=== PATIENT | female | born 1985 | race Caucasian/White ===

== ENCOUNTER 2017-01-20 03:09 | Outpatient (CLI) | payer OTHER | END 2017-01-20 03:10 | disposition home or self-care (01) | LOC: BICMRI 03:09 | PROVIDERS: ATTEND Family Medicine | DX: Z53.9 Procedure and treatment not carried out, unspecified reason (principal) ==

== ENCOUNTER 2018-06-01 21:22 | Emergency (ER) | payer OTHER ==
--- NOTE | 2018-06-01 22:53 | ULT ---
RIGHT UPPER QUADRANT ULTRASOUND: 06/01/18 HISTORY: Elevated LFTs and abdominal pain. FINDINGS: Liver echogenicity is within normal limits. No focal liver masses. Status post cholecystectomy. Commo n bile duct 0.4 cm. The visualized pancreas and right kidney are unremarkable. No right upper quadran t fluid collection. IMPRESSION: Status post cholecystectomy without ductal dilatation. Unremarkable right upper quadrant ultrasound. POS: [facility]
[2018-06-01 22:54] LABS: Free T4 (Free Thyroxine) 0.98 ng/dL (0.70-1.48)
[2018-06-02 00:23] LABS: HBCM Index 0.06 S/CO (0-0.79); HBSAg Index 0.32 S/CO (0-0.99); Hep A IgM AB Non-Reactive (NonReactive); Hep B Surf Ag Non-Reactive S/CO (NonReactive); Hep C IgG Ab Non-Reactive (NonReactive); Hep C Index 0.09 S/CO (0-0.79); Hepatitis B Core IgM Abs Non-Reactive (NonReactive)
== END 2018-06-01 23:28 | disposition home or self-care (01) ==
LOC: ERS 21:22
DX: B17.9 Acute viral hepatitis, unspecified (principal); F41.9 Anxiety disorder, unspecified; F17.210 Nicotine dependence, cigarettes, uncomplicated; Z87.442 Personal history of urinary calculi; Z79.1 Long term (current) use of non-steroidal anti-inflammatories (NSAID); Z79.899 Other long term (current) drug therapy
CPT/HCPCS: 36415; 76705; 80074; 84439

== ENCOUNTER 2018-06-04 06:52 | Emergency (ER) | payer OTHER ==
[2018-06-04 07:15] LABS: #Lymphocytes 1.9 thou/uL (1.20-3.40); #Monocytes 0.6 thou/uL (0.11-0.59); %Basophils 0.6 % (0.0-1.0); %Eosinophils 0.2 % (0.0-10.0); %Lymphocytes 25.4 % (21.0-51.0); %Monocytes 7.8 % (0.0-10.0); Mean Corpuscular HGB CONC 32.4 g/dL (32.0-36.0); Mean Corpuscular Volume 89.5 fL (78.0-98.0); Mean Platelet Volume 7.1 fL (7.4-10.4); Platelet Count 311 thou/uL (130-400); RBC Distribution Width 15.8 % (11.5-14.5); Red Blood Cell (RBC) Count 5.15 mill/uL (4.20-5.40); White Blood Cell (WBC) Count 7.5 thou/uL (4.8-10.8)
[2018-06-04 07:40] LABS: Acetaminophen Less than 6.0 mcg/mL (10.0-30.0); Alcohol Less than 10 mg/dL (Less than 10); Salicylate Less than 8.0 mg/dL (15.0-30.0)
[2018-06-04 07:41] LABS: ALT (SGPT) 136 U/L (8-55); AST (SGOT) 47 U/L (5-34); Albumin 4.6 g/dL (3.5-5.0); Alkaline Phosphatase 176 U/L (40-150); Anion Gap 17 mmol/L (10-20); BUN (Urea Nitrogen) 14 mg/dL (7.0-18.7); Bilirubin, Total 1.1 mg/dL (0.2-1.2); Calc. Creatinine Clearance 0 mL/min (70-130); Calcium 9.8 mg/dL (7.8-10.44); Carbon Dioxide 22 mmol/L (22-29); Chloride 103 mmol/L (98-107); Estimated GFR-MDRD Greater than 90; Globulin 3.7 g/dL (2.4-3.5); Glucose 134 mg/dL (70-105); Potassium 3.5 mmol/L (3.5-5.1); Protein, Total 8.3 g/dL (6.0-8.3); Sodium 138 mmol/L (136-145)
== END 2018-06-04 11:20 | disposition home or self-care (01) ==
LOC: ERS 06:52
DX: F32.9 Major depressive disorder, single episode, unspecified (principal); F11.10 Opioid abuse, uncomplicated; F19.10 Other psychoactive substance abuse, uncomplicated; F41.9 Anxiety disorder, unspecified; F17.210 Nicotine dependence, cigarettes, uncomplicated; Z79.899 Other long term (current) drug therapy
CPT/HCPCS: 36415; 80053; 80307; 85025; 96360; 96361

== ENCOUNTER 2018-06-06 02:37 | Inpatient (IN) | payer OTHER ==
[2018-06-06] MEDS ORDERED: cefTRIAXone\\ROCEPHIN 2 GM VIAL ONE (03:28)
[2018-06-06] MEDS ORDERED: Sodium Chloride 0.9% 100 ML ONE (03:28)
[2018-06-06] MEDS ORDERED: Vancomycin HCl 1.25 GM in Sodium Chloride 0.9% 250 ML 250 ML IVPB SCH (04:00)
[2018-06-06 06:26] VITALS: BMI 21.0
[2018-06-06] MEDS ORDERED: Ondansetron ODT 4 MG TAB PO PRN (07:00)
[2018-06-06] MEDS ORDERED: Ondansetron PF 4 MG/2 ML Vial IVP PRN ×2 (07:00→08:01)
[2018-06-06] MEDS ORDERED: Acetaminophen 325 MG TAB PO PRN (07:55)
[2018-06-06] MEDS ORDERED: Bisacodyl 5 MG TAB PO PRN (08:01)
[2018-06-06] MEDS ORDERED: cefTRIAXone Sodium 2 MG in Syringe 0 ML IVPB SCH (08:15)
[2018-06-06] MEDS: Famotidine 20 MG TAB PO SCH ×2 (08:55→19:33)
[2018-06-06] MEDS: ALPRAZolam 0.5 MG TAB PO SCH ×3 (08:55→19:33)
[2018-06-06] MEDS: HYDROcodone/Acetaminophen 5/325 mg Tablet PO PRN ×3 (10:53→19:33)
[2018-06-06] MEDS: Sodium Chloride 0.9% 1,000 ML IV SCH ×2 (10:54→17:06)
[2018-06-06] MEDS: Acyclovir Sodium 800 MG in Sodium Chloride 0.9% 250 ML 250 ML IVPB SCH ×2 (11:35→19:34)
[2018-06-06] MEDS: Vancomycin HCl 1 GM in Premix Bag 1 BAG IVPB SCH ×2 (13:49→19:34)
--- NOTE | 2018-06-06 14:11 | HP ---
CHIEF COMPLAINT: Confusion. 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 She was found to have elevated liver enzymes and told that it was related to the Tylenol and her [place]. She decided to discontinue her benzodiazepine and [place] abruptly and started developing hallucinations. Now, there is a mention of subjective fever and the patient was transferred from [place] ER for suspected encephalitis. She denies any genital or oral ulcers. She refers significant bilateral hip pain. Her , Mitchel, is present and helps providing some of the information. He is currently disoriented in place only, but is able to communicate and cooperate. At the [place] ER, she was found to have elevated white blood cell count, mildly elevation of liver enzymes, low TSH, low potassium, urine drug screen positive for marijuana and opiates. REVIEW OF SYSTEMS: All systems are reviewed and negative except for the ones mentioned above. PAST MEDICAL HISTORY: 1. Chronic pain syndrome. 2. Anxiety. 3. Chronic opiate dependence. 4. Benzodiazepine dependence. PAST SURGICAL HISTORY: 1. Hysterectomy. 2. Cholecystectomy. 3. Spine tumor removal. SOCIAL HISTORY: She denies tobacco or alcohol. Narcotic and benzodiazepine dependence. She is positive for marijuana. She has eight children. Currently unemployed. She has no living will, power of consumer attorney, advance directive. She is a full code. ALLERGIES: TO TYLENOL NO 3, BUT ABLE TO TOLERATE [place] WITHOUT COMPLICATIONS. FAMILY HISTORY: Her mother with a stroke. She did not know her father. HOME MEDICATIONS: Reviewed. PHYSICAL EXAMINATION: VITAL SIGNS: Currently unavailable. GENERAL: She appears in mild distress. She is awake, alert, and oriented in person, time, but not place. HEAD AND NECK: Pupils are reactive to light. Extraocular muscles are intact. Mucous members are moist. Neck is supple. CARDIOVASCULAR: Rhythm and rate are regular. No audible murmurs, rubs, or gallops. PULMONARY: Clear to auscultation bilaterally. No wheezes, rhonchi, or crackles. ABDOMEN: Soft, nontender, nondistended, positive bowel sounds. EXTREMITIES: No palpable edema. Pulses are symmetric. Range of motion is somewhat painful in bilateral hips. SKIN: Fair skin. No genital or oral ulcers. No breakdowns of the skin. NEUROLOGIC: Cranial nerves 2 through 12 are grossly intact. Deep tendon reflexes are normoreflexic. LABORATORY ABNORMALITIES: Outside labs are reviewed. IMAGING STUDIES: CT scan report and chest x-ray report reviewed. ASSESSMENT AND PLAN: 1. Acute metabolic encephalopathy: No clear etiology. Suspected infectious. LP was attempted at the [place] ER and was unsuccessful. IR has been consulted for CT-guided LP. We will continue broad antibiotics for suspected encephalitis/meningitis until results are available. More likely since I was reviewing vital signs without the presence of fever. 2. Chronic pain syndrome: Continue pain control as needed. 3. Possible narcotic withdrawal: Improving after few doses of [place]. 4. Leukocytosis: It appears reactive. Investigating for infection source. Continue antibiotics as above. 5. Elevated liver enzymes: No clear etiology. Monitor closely. 6. Hypokalemia: Acute. Replace and monitor. 7. Decreased TSH: Check free T4. 8. Marijuana abuse without dependence. 9. Opiate dependence. 10. Benzodiazepine dependence. CODE STATUS: Full code. CORE MEASURE: SCDs due to LP performed soon. CLINICAL STATUS: Guarded. PROGNOSIS: Guarded. DISPOSITION: Medical surgical unit. EXPECTED LENGTH OF STAY: Greater than 2 midnights. TOTAL TIME SPENT: 35 minutes. Job ID: [id number]
[2018-06-07] MEDS: cefTRIAXone\\ROCEPHIN 2 GM in Sodium Chloride 0.9% 100 ML IVPB SCH (03:06)
[2018-06-07] MEDS: Acyclovir Sodium 800 MG in Sodium Chloride 0.9% 250 ML 250 ML IVPB SCH ×3 (04:13→20:10)
[2018-06-07] MEDS: Vancomycin HCl 1 GM in Premix Bag 1 BAG IVPB SCH ×3 (05:31→22:25)
[2018-06-07 06:47] LABS: #Basophils 0.1 thou/uL (0.0-0.2); #Eosinphils 0.1 thou/uL (0.0-0.7); #Lymphocytes 2.9 thou/uL (1.20-3.40); #Monocytes 0.9 thou/uL (0.11-0.59); #Neutrophils 9.1 thou/uL (1.40-6.50); %Basophils 0.6 % (0.0-1.0); %Eosinophils 0.9 % (0.0-10.0); %Lymphocytes 22.2 % (21.0-51.0); %Monocytes 6.9 % (0.0-10.0); %Neutrophils 69.4 % (42.0-75.0); Hemoglobin 12.1 g/dL (12.0-16.0); Mean Corpuscular HGB CONC 31.4 g/dL (32.0-36.0); Mean Corpuscular Hemoglobin 29.2 pg (27.0-31.0); Mean Corpuscular Volume 93.1 fL (78.0-98.0); Mean Platelet Volume 7.4 fL (7.4-10.4); Platelet Count 262 thou/uL (130-400); RBC Distribution Width 15.8 % (11.5-14.5); Red Blood Cell (RBC) Count 4.15 mill/uL (4.20-5.40); White Blood Cell (WBC) Count 13.2 thou/uL (4.8-10.8)
[2018-06-07 07:06] LABS: Vancomycin, Trough 19.7 ug/mL
[2018-06-07 07:08] LABS: ALT (SGPT) 70 U/L (8-55); AST (SGOT) 34 U/L (5-34); Albumin 3.6 g/dL (3.5-5.0); Alkaline Phosphatase 129 U/L (40-150); Anion Gap 14 mmol/L (10-20); BUN (Urea Nitrogen) 9 mg/dL (7.0-18.7); Bilirubin, Total 0.4 mg/dL (0.2-1.2); Calc. Creatinine Clearance 114 mL/min (70-130); Carbon Dioxide 21 mmol/L (22-29); Chloride 110 mmol/L (98-107); Estimated GFR-MDRD Greater than 90; Glucose 95 mg/dL (70-105); Potassium 3.5 mmol/L (3.5-5.1); Protein, Total 6.6 g/dL (6.0-8.3); Sodium 141 mmol/L (136-145)
[2018-06-07] MEDS ORDERED: Artificial Tear Sol 15 ML BOT EA EYE PRN (08:27)
[2018-06-07] MEDS ORDERED: Loratadine 10 MG TAB PO PRN (08:27)
[2018-06-07] MEDS ORDERED: Eucerin (Mineral Oil/Petrolatum,White) 30 gm Jar TOP PRN (08:27)
[2018-06-07] MEDS ORDERED: hydrALAZINE 20 MG/ML VIAL SLOW IVP PRN (08:27)
[2018-06-07] MEDS ORDERED: Cepastat Lozenges 1 LOZ PO PRN (08:27)
[2018-06-07] MEDS ORDERED: Diabetic Tussin 200 MG/10 ML UDCUP PO PRN (08:27)
[2018-06-07] MEDS ORDERED: Loperamide HCl 2 MG CAP PO PRN (08:27)
[2018-06-07] MEDS ORDERED: Sodium Chloride 0.65% Nasal 44 ML BOT EA NARE PRN (08:27)
[2018-06-07] MEDS: HYDROcodone/Acetaminophen 5/325 mg Tablet PO PRN ×3 (09:59→20:09)
[2018-06-07] MEDS: Famotidine 20 MG TAB PO SCH ×2 (10:00→20:11)
[2018-06-07] MEDS: ALPRAZolam 0.5 MG TAB PO SCH ×3 (10:00→20:09)
[2018-06-07] MEDS: Sodium Chloride 0.9% 1,000 ML IV SCH ×2 (10:12→20:12)
[2018-06-07] MEDS: Saccharomyces boulardii 250 MG CAP PO SCH (10:12)
--- NOTE | 2018-06-07 10:47 | PDOC.PN ---
- Subjective Encounter Start Date: 06/07/18 Encounter Start Time: 08:20 -: old records requested/rev Patient seen and examined. No new complaints. No overnight events pt has headache - Objective Resuscitation Status - Order Detail: 06/06/18 07:55 Resuscitation Status Routine Resuscitation Status: FULL: Full Resuscitation Discussed with: patient and MAR Reviewed: Yes Vital Signs & Weight: Vital Signs (12 hours) Temp Pulse Resp BP BP Pulse Ox 06/07/18 07:24 98.0 F 79 20 119/76 99 06/07/18 05:41 98.6 F 73 18 125/84 98 06/07/18 00:03 98.4 F 65 16 94/59 L 98 Weight Weight 142 lb 9.6 oz I&O: 06/06/18 06/07/18 06/08/18 06:59 06:59 06:59 Intake Total 3310 Balance 3310 Result Diagrams: 06/07/18 05:50 06/07/18 05:50 Radiology Reviewed by me: Yes Phys Exam - Physical Examination Constitutional: NAD HEENT: PERRLA, moist MMs, sclera anicteric Neck: no JVD, supple Respiratory: no wheezing, no rales, no rhonchi Cardiovascular: RRR, no significant murmur, no rub Gastrointestinal: soft, non-tender, no distention, positive bowel sounds Musculoskeletal: no edema, pulses present Neurological: non-focal, normal sensation, moves all 4 limbs Lymphatic: no nodes Psychiatric: normal affect, A&O x 3 Skin: no rash, normal turgor Dx/Plan (1) Acute metabolic encephalopathy Code(s): G93.41 - METABOLIC ENCEPHALOPATHY Status: Acute (2) Hypokalemia Code(s): E87.6 - HYPOKALEMIA Status: Acute (3) Leucocytosis Code(s): D72.829 - ELEVATED WHITE BLOOD CELL COUNT, UNSPECIFIED Status: Acute (4) Low TSH level Code(s): R79.89 - OTHER SPECIFIED ABNORMAL FINDINGS OF BLOOD CHEMISTRY Status : Acute (5) Transaminitis Code(s): R74.0 - NONSPEC ELEV OF LEVELS OF TRANSAMNS & LACTIC ACID DEHYDRGNSE Status: Acute (6) Benzodiazepine dependence Code(s): F13.20 - SEDATIVE, HYPNOTIC OR ANXIOLYTIC DEPENDENCE, UNCOMPLICATED Status: Chronic (7) Cannabis abuse Code(s): F12.10 - CANNABIS ABUSE, UNCOMPLICATED Status: Chronic (8) Narcotic dependence Code(s): F11.20 - OPIOID DEPENDENCE, UNCOMPLICATED Status: Chronic - Plan cont current plan of care * consult ID * continue current empiric treatment * today MRI * LP * medication reviewed as below * symptomatic treatment. Review of Systems - Review of Systems Constitutional: negative: fever, chills, sweats, weakness, malaise, other ENT: negative: Ear Pain, Ear Discharge, Nose Pain, Nose Discharge, Nose Congestion, Mouth Pain, Mouth Swelling, Throat Pain, Throat Swelling, Other Respiratory: negative: Cough, Dry, Shortness of Breath, Hemoptysis, SOB with Excertion, Pleuritic Pain, Sputum, Wheezing Cardiovascular: negative: chest pain, palpitations, orthopnea, paroxysmal nocturnal dyspnea, edema, light headedness, other Gastrointestinal: negative: Nausea, Vomiting, Abdominal Pain, Diarrhea, Constipation, Melena, Hematochezia, Other Genitourinary: negative: Dysuria, Frequency, Incontinence, Hematuria, Retention , Other Musculoskeletal: negative: Neck Pain, Shoulder Pain, Arm Pain, Back Pain, Hand Pain, Leg Pain, Foot Pain, Other - Medications/Allergies Allergies/Adverse Reactions: Allergies Allergy/AdvReac Type Severity Reaction Status Date / Time codeine Allergy Rash Verified 06/06/18 06:36 Medications: Current Medications Acetaminophen (Tylenol) 650 mg PO Q4H PRN PRN Reason: Headache/Fever/Mild Pain (1-3) Hydrocodone Bitart/Acetaminophen ([place] 5/325) 1 tab PO Q4H PRN PRN Reason: Moderate Pain (4-6) Last Admin: 06/06/18 14:40 Dose: 1 tab Hydrocodone Bitart/Acetaminophen ([place] 5/325) 2 tab PO Q4H PRN PRN Reason: Severe Pain (7-10) Last Admin: 06/07/18 09:59 Dose: 2 tab Alprazolam (Xanax) 0.5 mg PO TID [facility] Last Admin: 06/07/18 10:00 Dose: 0.5 mg Artificial Tears (Liquitears 15ml Bottle) 2 drop EA EYE PRN PRN PRN Reason: Dry Eyes Bisacodyl (Dulcolax) 10 mg PO DAILYPRN PRN PRN Reason: Constipation Famotidine (Pepcid) 20 mg PO BID [facility] Last Admin: 06/07/18 10:00 Dose: 20 mg Guaifenesin (Robitussin Sf) 200 mg PO Q4H PRN PRN Reason: Cough Hydralazine HCl (Apresoline) 10 mg SLOW IVP Q4H PRN PRN Reason: SBP > 180 and HR < 70 Acyclovir Sodium 800 mg/ (Sodium Chloride) 266 mls @ 266 mls/hr IVPB Q8H [facility] Stop: 06/11/18 15:00 Last Admin: 06/07/18 04:13 Dose: 266 mls Sodium Chloride (Normal Saline 0.9%) 1,000 mls @ 100 mls/hr IV .Q10H [facility] Last Admin: 06/07/18 10:12 Dose: 1,000 mls Ceftriaxone Sodium 2 gm/ (Sodium Chloride) 100 mls @ 200 mls/hr IVPB Q24HR [facility] Last Admin: 06/07/18 03:06 Dose: 100 mls Vancomycin HCl 1 gm/ Device 200 mls @ 200 mls/hr IVPB Q8HR [facility] Last Admin: 06/07/18 05:31 Dose: 200 mls Loperamide HCl (Imodium) 2 mg PO PRN PRN PRN Reason: Diarrhea/Loose Stools Loratadine (Claritin) 10 mg PO DAILYPRN PRN PRN Reason: Sinus Symptoms Mineral Oil/White Petrolatum (Eucerin Cream) 0 gm TOP BIDPRN PRN PRN Reason: Dry Skin Miscellaneous Medication (Pharmacy To Dose) 1 each IVPB .VANC PRN PRN Reason: Pharmacy to dose Ondansetron HCl (Zofran Odt) 4 mg PO Q6H PRN PRN Reason: Nausea/Vomiting Stop: 06/11/18 15:00 Ondansetron HCl (Zofran) 4 mg IVP Q6H PRN PRN Reason: Nausea/Vomiting Saccharomyces Boulardii (Florastor) 250 mg PO DAILY [facility] Last Admin: 06/07/18 10:12 Dose: 250 mg Sodium Chloride (Flush - Normal Saline) 10 ml IVF Q12HR [facility] Last Admin: 06/07/18 10:12 Dose: Not Given Sodium Chloride (Flush - Normal Saline) 10 ml IVF PRN PRN PRN Reason: Saline Flush Sodium Chloride ([place] Nasal [place] 0.65%) 0 ml EA NARE QIDPRN PRN PRN Reason: Nasal Congestion Throat Lozenges (Cepastat Lozenges) 1 jose cruz PO Q2H PRN PRN Reason: Sore Throat
--- NOTE | 2018-06-07 14:29 | MRI ---
MRI Brain W WO Con: 06/07/2018 12:00 AM CLINICAL HISTORY: Altered mental status. COMPARISON: Head CT, 2 days prior FINDINGS: Extra axial spaces: Normal in size and morphology for the patient's age. Acute infarction: None. Ventricular system: Normal in size and morphology for the patient's age. Basal cisterns: Normal. Cerebral parenchyma: Normal. Midline shift: None. Cerebellum: Normal. Brainstem: Normal. Paranasal sinuses:Clear Intraaxial Enhancement: None IMPRESSION:No acute intracranial abnormality.
--- NOTE | 2018-06-07 21:26 | CON ---
DATE OF CONSULTATION: 06/07/2018 REASON FOR CONSULTATION: Possible sepsis. HISTORY OF PRESENT ILLNESS: A 32-year-old who has history of chronic pain syndrome mostly in the back, opiate dependency, who lives at home with her 8 children and was developed nausea and vomiting, was seen in the emergency room, was found to have elevated liver enzymes and told to stop [place] and Tylenol. She also is on benzodiazepine drugs and those were discontinued abruptly and she developed hallucinations and now, she has some fever and was transferred for evaluation. No headaches. No visual symptoms, sore throat, odynophagia, or dysphagia. No cough, sputum production, or chest pain. She has a quite intense low back pain, which she alleges as much more intense than usual. No genitourinary symptoms. No joint symptoms. PAST MEDICAL HISTORY: Chronic back pain, anxiety, opiate dependency, benzodiazepine drug use. PAST SURGICAL HISTORY: Hysterectomy, cholecystectomy, spine tumor removal. SOCIAL HISTORY: Lives in [place] with 8 children. Unemployed. Never smoker. ALLERGIES: TYLENOL NO.3. FAMILY HISTORY: Noncontributory. PHYSICAL EXAMINATION: VITAL SIGNS: She has been afebrile since admission to the hospital. BP 120/74, pulse 62, respirations 18, O2 saturation 98%. SKIN: Peripheral IV access. GENERAL: The patient is urinating in the toilet. HEENT: Ocular movements conjugate. Sclerae white. Pupils are equal. Conjunctivae normal. Nasal passages patent. Oral cavity normal. Numerous teeth in place in good shape. NECK: Supple. No jugular vein distention. No lymphadenopathy. LUNGS: Symmetric. Clear breath sounds. HERAT: S1 and S2, regular rate. ABDOMEN: Soft. Not distended. Marked lower lumbosacral spine tenderness. No other joint inflammatory process noted. Pulses 1+ in dorsalis pedis. Moves extremities equally. Cognitive function appears to be intact. She appears to be quite anxious. LABORATORY DATA: White cell count 13.2, hemoglobin 12, platelets 262 with normal differential. Sodium 141, creatinine 0.71, ALT 70, AST 34, alkaline phosphatase 129. Vancomycin trough 19.7. She had an MRI of brain with no acute intracranial abnormality, this was done earlier this morning. There is an abdomen and pelvis CT from 05/26/2018, with reduction of mass in posterior hemipelvis, cystic and solid in morphology. She had a pelvis CT scan in 2017, which showed cystic lesion in the pelvis. There is a lumbar CT on 05/26/2018, with possible protrusion of L2-L3 with effacement of ventral thecal sac contents. No osseous abnormality. ASSESSMENT: 1. Chronic low back pain. 2. Chronic opioid ingestion. 3. Nausea and vomiting with concern for acetaminophen toxicity. 4. Worsening low back pain. 5. Neutrophilia. DISCUSSION: Differential diagnosis includes infectious process in the lumbosacral spine area versus invasive urinary tract infection. We will wait for the results of the lumbosacral spine MRI and if they are positive evidently, then she will need IV therapy for protracted periods of time. If they are negative, then we will pursue other possibilities. Job ID: [id number]
[2018-06-08] MEDS ORDERED: Melatonin 3 MG TAB PO PRN (00:04)
[2018-06-08] MEDS: HYDROcodone/Acetaminophen 5/325 mg Tablet PO PRN ×4 (00:26→20:10)
[2018-06-08] MEDS: cefTRIAXone\\ROCEPHIN 2 GM in Sodium Chloride 0.9% 100 ML IVPB SCH (02:49)
[2018-06-08] MEDS: Acyclovir Sodium 800 MG in Sodium Chloride 0.9% 250 ML 250 ML IVPB SCH ×2 (04:18→12:22)
[2018-06-08] MEDS: Sodium Chloride 0.9% 1,000 ML IV SCH (04:19)
[2018-06-08] MEDS: Vancomycin HCl 1 GM in Premix Bag 1 BAG IVPB SCH (06:13)
[2018-06-08 07:43] LABS: #Basophils 0.1 thou/uL (0.0-0.2); #Eosinphils 0.1 thou/uL (0.0-0.7); #Lymphocytes 3.2 thou/uL (1.20-3.40); #Monocytes 0.6 thou/uL (0.11-0.59); #Neutrophils 4.7 thou/uL (1.40-6.50); %Basophils 1.3 % (0.0-1.0); %Eosinophils 1.4 % (0.0-10.0); %Lymphocytes 36.6 % (21.0-51.0); %Monocytes 6.8 % (0.0-10.0); %Neutrophils 53.9 % (42.0-75.0); Hemoglobin 11.6 g/dL (12.0-16.0); Mean Corpuscular HGB CONC 31.6 g/dL (32.0-36.0); Mean Corpuscular Hemoglobin 29.2 pg (27.0-31.0); Mean Corpuscular Volume 92.2 fL (78.0-98.0); Mean Platelet Volume 7.6 fL (7.4-10.4); Platelet Count 250 thou/uL (130-400); RBC Distribution Width 15.6 % (11.5-14.5); Red Blood Cell (RBC) Count 3.97 mill/uL (4.20-5.40); White Blood Cell (WBC) Count 8.8 thou/uL (4.8-10.8)
[2018-06-08 08:05] LABS: ALT (SGPT) 50 U/L (8-55); AST (SGOT) 24 U/L (5-34); Albumin 3.3 g/dL (3.5-5.0); Alkaline Phosphatase 111 U/L (40-150); Anion Gap 14 mmol/L (10-20); BUN (Urea Nitrogen) 8 mg/dL (7.0-18.7); Bilirubin, Total 0.3 mg/dL (0.2-1.2); Calc. Creatinine Clearance 123 mL/min (70-130); Calcium 8.8 mg/dL (7.8-10.44); Carbon Dioxide 22 mmol/L (22-29); Chloride 108 mmol/L (98-107); Estimated GFR-MDRD Greater than 90; Globulin 2.9 g/dL (2.4-3.5); Glucose 99 mg/dL (70-105); Potassium 3.5 mmol/L (3.5-5.1); Protein, Total 6.2 g/dL (6.0-8.3); Sodium 140 mmol/L (136-145)
[2018-06-08] MEDS: ALPRAZolam 0.5 MG TAB PO SCH ×3 (09:15→20:09)
[2018-06-08] MEDS: Saccharomyces boulardii 250 MG CAP PO SCH (09:15)
[2018-06-08] MEDS: Famotidine 20 MG TAB PO SCH ×2 (09:17→20:09)
[2018-06-08 09:46] LABS: Bilirubin Negative (Negative); Blood, Urine Negative (Negative); Clarity CLEAR (Clear); Glucose, Urine (Dipstick) Negative (Negative); Leukocyte Negative (Negative); Nitrite Negative (Negative); Protein, Urine (Dipstick) Negative (Neg-Trace); Specific Gravity, Urine 1.008 (1.002-1.036); Urobilinogen 0.2 mg/dL (0.2-1.0); pH, Urine 6.5 (5.0-9.0)
[2018-06-08 13:28] LABS: CSF Source CSF; Clarity Clear (Clear)
[2018-06-08 13:29] LABS: RBC Count - Manual 1 /cumm (None Seen); Tube # 3; WBC/NonHematics Count - Manual 2 /cumm (0-5)
--- NOTE | 2018-06-08 13:31 | PDOC.PN ---
- Subjective Encounter Start Date: 06/08/18 Encounter Start Time: 08:45 Patient seen and examined. No new complaints. No overnight events - Objective Resuscitation Status - Order Detail: 06/06/18 07:55 Resuscitation Status Routine Resuscitation Status: FULL: Full Resuscitation Discussed with: patient and DEQUAN Reviewed: Yes Vital Signs & Weight: Vital Signs (12 hours) Temp Pulse Resp BP Pulse Ox 06/08/18 08:00 99 06/08/18 07:42 98.0 F 58 L 14 145/94 H 99 06/08/18 05:00 97.7 F Weight Admit Weight 142 lb 9.6 oz Weight 142 lb 9.6 oz I&O: 06/07/18 06/08/18 06/09/18 06:59 06:59 06:59 Intake Total 3310 2770 Balance 3310 2770 Result Diagrams: 06/08/18 06:37 06/08/18 06:37 Phys Exam - Physical Examination Constitutional: NAD HEENT: PERRLA, moist MMs, sclera anicteric Neck: no nodes, no JVD, supple, full ROM Respiratory: no wheezing, no rales, no rhonchi Cardiovascular: RRR, no significant murmur, no rub Gastrointestinal: soft, non-tender, no distention, positive bowel sounds Musculoskeletal: no edema, pulses present Neurological: non-focal, normal sensation, moves all 4 limbs Lymphatic: no nodes Psychiatric: normal affect, A&O x 3 Skin: no rash, normal turgor Dx/Plan (1) Acute metabolic encephalopathy Code(s): G93.41 - METABOLIC ENCEPHALOPATHY Status: Resolved (2) Hypokalemia Code(s): E87.6 - HYPOKALEMIA Status: Resolved (3) Leucocytosis Code(s): D72.829 - ELEVATED WHITE BLOOD CELL COUNT, UNSPECIFIED Status: Resolved (4) Low TSH level Code(s): R79.89 - OTHER SPECIFIED ABNORMAL FINDINGS OF BLOOD CHEMISTRY Status : Acute (5) Transaminitis Code(s): R74.0 - NONSPEC ELEV OF LEVELS OF TRANSAMNS & LACTIC ACID DEHYDRGNSE Status: Resolved (6) Benzodiazepine dependence Code(s): F13.20 - SEDATIVE, HYPNOTIC OR ANXIOLYTIC DEPENDENCE, UNCOMPLICATED Status: Chronic (7) Cannabis abuse Code(s): F12.10 - CANNABIS ABUSE, UNCOMPLICATED Status: Chronic (8) Narcotic dependence Code(s): F11.20 - OPIOID DEPENDENCE, UNCOMPLICATED Status: Chronic - Plan cont current plan of care, continue antibiotics * medication reviewed as below * symptomatic treatment * ID following * LP today * MRI normal * will narrow antibiotics today, clinically does not suspect any meningitis. Review of Systems - Review of Systems ENT: negative: Ear Pain, Ear Discharge, Nose Pain, Nose Discharge, Nose Congestion, Mouth Pain, Mouth Swelling, Throat Pain, Throat Swelling, Other Respiratory: negative: Cough, Dry, Shortness of Breath, Hemoptysis, SOB with Excertion, Pleuritic Pain, Sputum, Wheezing Cardiovascular: negative: chest pain, palpitations, orthopnea, paroxysmal nocturnal dyspnea, edema, light headedness, other Gastrointestinal: negative: Nausea, Vomiting, Abdominal Pain, Diarrhea, Constipation, Melena, Hematochezia, Other Genitourinary: negative: Dysuria, Frequency, Incontinence, Hematuria, Retention , Other Musculoskeletal: Back Pain. negative: Neck Pain, Shoulder Pain, Arm Pain, Hand Pain, Leg Pain, Foot Pain, Other - Medications/Allergies Allergies/Adverse Reactions: Allergies Allergy/AdvReac Type Severity Reaction Status Date / Time codeine Allergy Rash Verified 06/06/18 06:36 Medications: Current Medications Acetaminophen (Tylenol) 650 mg PO Q4H PRN PRN Reason: Headache/Fever/Mild Pain (1-3) Hydrocodone Bitart/Acetaminophen ([place] 5/325) 1 tab PO Q4H PRN PRN Reason: Moderate Pain (4-6) Last Admin: 06/06/18 14:40 Dose: 1 tab Hydrocodone Bitart/Acetaminophen ([place] 5/325) 2 tab PO Q4H PRN PRN Reason: Severe Pain (7-10) Last Admin: 06/08/18 09:15 Dose: 2 tab Alprazolam (Xanax) 0.5 mg PO TID [facility] Last Admin: 06/08/18 09:15 Dose: 0.5 mg Artificial Tears (Liquitears 15ml Bottle) 2 drop EA EYE PRN PRN PRN Reason: Dry Eyes Bisacodyl (Dulcolax) 10 mg PO DAILYPRN PRN PRN Reason: Constipation Famotidine (Pepcid) 20 mg PO BID [facility] Last Admin: 06/08/18 09:17 Dose: 20 mg Guaifenesin (Robitussin Sf) 200 mg PO Q4H PRN PRN Reason: Cough Hydralazine HCl (Apresoline) 10 mg SLOW IVP Q4H PRN PRN Reason: SBP > 180 and HR < 70 Acyclovir Sodium 800 mg/ (Sodium Chloride) 266 mls @ 266 mls/hr IVPB Q8H [facility] Stop: 06/11/18 15:00 Last Admin: 06/08/18 12:22 Dose: 266 mls Ceftriaxone Sodium 2 gm/ (Sodium Chloride) 100 mls @ 200 mls/hr IVPB Q24HR [facility] Last Admin: 06/08/18 02:49 Dose: 100 mls Vancomycin HCl 1 gm/ Device 200 mls @ 200 mls/hr IVPB Q8HR [facility] Last Admin: 06/08/18 06:13 Dose: 200 mls Loperamide HCl (Imodium) 2 mg PO PRN PRN PRN Reason: Diarrhea/Loose Stools Loratadine (Claritin) 10 mg PO DAILYPRN PRN PRN Reason: Sinus Symptoms Melatonin (Melatonin) 3 mg PO HS PRN PRN Reason: Insomnia Last Admin: 06/08/18 00:26 Dose: 3 mg Mineral Oil/White Petrolatum (Eucerin Cream) 0 gm TOP BIDPRN PRN PRN Reason: Dry Skin Miscellaneous Medication (Pharmacy To Dose) 1 each IVPB .VANC PRN PRN Reason: Pharmacy to dose Ondansetron HCl (Zofran Odt) 4 mg PO Q6H PRN PRN Reason: Nausea/Vomiting Stop: 06/11/18 15:00 Ondansetron HCl (Zofran) 4 mg IVP Q6H PRN PRN Reason: Nausea/Vomiting Saccharomyces Boulardii (Florastor) 250 mg PO DAILY [facility] Last Admin: 06/08/18 09:15 Dose: 250 mg Sodium Chloride (Flush - Normal Saline) 10 ml IVF Q12HR [facility] Last Admin: 06/08/18 09:17 Dose: Not Given Sodium Chloride (Flush - Normal Saline) 10 ml IVF PRN PRN PRN Reason: Saline Flush Sodium Chloride ([place] Nasal [place] 0.65%) 0 ml EA NARE QIDPRN PRN PRN Reason: Nasal Congestion Throat Lozenges (Cepastat Lozenges) 1 jose cruz PO Q2H PRN PRN Reason: Sore Throat
--- NOTE | 2018-06-08 13:32 | RAD ---
Lumbar puncture, fluoroscopic guidance: CLINICAL INDICATION: Fever, pain, leukocytosis PROCEDURE: Informed consent was obtained. Patient was escorted to procedural suite. Patient was placed into a pr one position and the lumbar spine was imaged for procedural preparation. The patient's skin of the low back was then prepped and draped in a standard sterile fashion. Topical anesthesia was achieved w ith 1% lidocaine, buffered with sodium bicarbonate. Using a standard spinal needle, uneventful access was achieved within the lumbar spine thecal sac with clear colorless CSF present at the needle hub. Specimens were acquired and placed into sterile containers which was sent to laboratory for analysis. No procedural complications were present. Patient was discharged from radiology in stable condition. Needle size: 22-gauge Level of approach: L2-3 Exposure data: 0.1 minutes intermittent fluoroscopy; 9 mcg per meter squared Volume of CSF removed from patient: 8 cc IMPRESSION: Technically successful lumbar puncture, as above.
--- NOTE | 2018-06-08 16:07 | PRG ---
DATE OF SERVICE: 06/08/2018 SUBJECTIVE: Ms. Ding denies any headaches anymore. Still with low back pain, which is quite intense. No respiratory symptoms. No abdominal pain. She has been afebrile. OBJECTIVE: HEENT: Ocular movements are conjugate. LUNGS: Symmetric. Clear breath sounds. HEART: S1 and S2, regular rate. ABDOMEN: Soft. Not distended. MUSCULOSKELETAL: Tenderness in the lumbosacral area. LABORATORY DATA: WBC count down to 8.8, hemoglobin 11.6, and platelets 250. For some reason, CSF was done, which was unremarkable. IMAGING STUDIES: MRI was not remarkable, this was the brain MRI. ASSESSMENT AND DISCUSSION: Chronic low back pain, chronic opioid ingestion, nausea, vomiting with concern for worsening low back pain. At this point, I would complete the workup with an LS spine MRI. Discontinue droplet precautions since meningitis has been ruled out. Job ID: [id number] MTDD
--- NOTE | 2018-06-08 18:15 | MRI ---
MR OF THE LUMBAR SPINE WITH AND WITHOUT CONTRAST 06/08/18 INDICATION: History of severe low back pain with fever. COMPARISON: CT lumbar spine without contrast 05/26/18. FINDINGS: The conus is seen to terminate at approximately L1. Other visualized retroperitoneum and paravertebr al soft tissues appear within normal limits. There is bilateral marrow edema with enhancement involving the sacral ala and bilateral fidencio adjacent to the SI joints. In review of the CT of the lumbar without contrast dated 05/26/18, there is periart icular erosive change involving both SI joints. Overall the findings are consistent with bilateral s acroiliitis. There is a broad based bulge at L5-S1 with a superimposed central annular fissure. There is no apprec iable central canal or neural foraminal narrowing. At L4-5, there is a broad based bulge without appreciable central canal or neural foraminal narrowing . At L3-4, there is essential annular fissure at L3-4 with a broad based bulge. At L2-3, there is a broad based bulge with a superimposed central protrusion causing mild ventral eff acement of the subarachnoid space but no appreciable neural foraminal narrowing. At L1-2, there no appreciable central canal or neural foraminal narrowing. T12-L1, there is no appreciable central canal or neural foraminal narrowing. No evidence of intrathecal abnormal enhancement is present. IMPRESSION: 1. Findings of bilateral sacroiliitis. Findings most suspicious for inflammatory etiology such a s ankylosing spondylitis or potentially entities such as rheumatoid arthritis or psoriatic arthritis . Arthritis related inflammatory bowel disease also could produce a similar finding. Septic arthritis is not incompletely excluded but is felt to be less likely. 2. Multilevel spondylosis of the lumbar spine. There is a prominent central disc protrusion at L 2-3 causing mild ventral effacement of the subarachnoid space. POS: [facility]
[2018-06-08] MEDS ORDERED: Acetaminophen 500 MG TAB PO PRN (18:27)
[2018-06-09] MEDS: cefTRIAXone\\ROCEPHIN 2 GM in Sodium Chloride 0.9% 100 ML IVPB SCH (03:20)
[2018-06-09] MEDS: HYDROcodone/Acetaminophen 5/325 mg Tablet PO PRN (06:05)
[2018-06-09 06:25] LABS: #Basophils 0.1 thou/uL (0.0-0.2); #Eosinphils 0.1 thou/uL (0.0-0.7); #Lymphocytes 2.9 thou/uL (1.20-3.40); #Monocytes 0.8 thou/uL (0.11-0.59); %Basophils 0.7 % (0.0-1.0); %Eosinophils 1.1 % (0.0-10.0); %Lymphocytes 26.9 % (21.0-51.0); %Monocytes 7.4 % (0.0-10.0); %Neutrophils 63.9 % (42.0-75.0); Hemoglobin 11.6 g/dL (12.0-16.0); Mean Corpuscular HGB CONC 31.6 g/dL (32.0-36.0); Mean Corpuscular Hemoglobin 29.8 pg (27.0-31.0); Mean Corpuscular Volume 94.2 fL (78.0-98.0); Mean Platelet Volume 7.7 fL (7.4-10.4); Platelet Count 254 thou/uL (130-400); RBC Distribution Width 15.5 % (11.5-14.5); Red Blood Cell (RBC) Count 3.89 mill/uL (4.20-5.40); White Blood Cell (WBC) Count 10.9 thou/uL (4.8-10.8)
[2018-06-09 06:46] LABS: ALT (SGPT) 41 U/L (8-55); AST (SGOT) 14 U/L (5-34); Albumin 3.5 g/dL (3.5-5.0); Alkaline Phosphatase 132 U/L (40-150); Anion Gap 12 mmol/L (10-20); BUN (Urea Nitrogen) 11 mg/dL (7.0-18.7); Bilirubin, Total 0.2 mg/dL (0.2-1.2); Calc. Creatinine Clearance 123 mL/min (70-130); Calcium 9.4 mg/dL (7.8-10.44); Carbon Dioxide 26 mmol/L (22-29); Chloride 107 mmol/L (98-107); Estimated GFR-MDRD Greater than 90; Globulin 3.2 g/dL (2.4-3.5); Glucose 112 mg/dL (70-105); Potassium 3.5 mmol/L (3.5-5.1); Protein, Total 6.7 g/dL (6.0-8.3); Sodium 141 mmol/L (136-145)
[2018-06-09] MEDS ORDERED: Ibuprofen 600 MG TAB PO PRN (07:36)
[2018-06-09] MEDS: Saccharomyces boulardii 250 MG CAP PO SCH (08:13)
[2018-06-09] MEDS: ALPRAZolam 0.5 MG TAB PO SCH (08:13)
[2018-06-09] MEDS: Famotidine 20 MG TAB PO SCH (08:13)
--- NOTE | 2018-06-09 10:23 | PDOC.PN ---
- Subjective Encounter Start Date: 06/09/18 Encounter Start Time: 07:30 Patient seen and examined. No new complaints. No overnight events - Objective Resuscitation Status - Order Detail: 06/06/18 07:55 Resuscitation Status Routine Resuscitation Status: FULL: Full Resuscitation Discussed with: patient and DEQUAN Reviewed: Yes Vital Signs & Weight: Vital Signs (12 hours) Temp Pulse Resp BP BP Pulse Ox 06/09/18 08:10 99 06/09/18 08:00 98.0 F 68 16 153/96 H 99 06/09/18 04:32 98.0 F 65 20 138/93 H 99 06/09/18 00:00 98.8 F 60 20 118/75 98 Weight Admit Weight 142 lb 9.6 oz Weight 142 lb 9.6 oz I&O: 06/08/18 06/09/18 06/10/18 06:59 06:59 06:59 Intake Total 2770 1070 Balance 2770 1070 Result Diagrams: 06/09/18 05:56 06/09/18 05:56 Phys Exam - Physical Examination Constitutional: NAD HEENT: PERRLA, moist MMs, sclera anicteric Neck: no JVD, supple Respiratory: no wheezing, no rales, no rhonchi Cardiovascular: RRR, no significant murmur, no rub Gastrointestinal: soft, non-tender, no distention, positive bowel sounds Musculoskeletal: no edema, pulses present Neurological: non-focal, normal sensation, moves all 4 limbs Lymphatic: no nodes Psychiatric: normal affect, A&O x 3 Skin: no rash, normal turgor Dx/Plan (1) Acute metabolic encephalopathy Code(s): G93.41 - METABOLIC ENCEPHALOPATHY Status: Resolved (2) Hypokalemia Code(s): E87.6 - HYPOKALEMIA Status: Resolved (3) Leucocytosis Code(s): D72.829 - ELEVATED WHITE BLOOD CELL COUNT, UNSPECIFIED Status: Resolved (4) Low TSH level Code(s): R79.89 - OTHER SPECIFIED ABNORMAL FINDINGS OF BLOOD CHEMISTRY Status : Acute (5) Transaminitis Code(s): R74.0 - NONSPEC ELEV OF LEVELS OF TRANSAMNS & LACTIC ACID DEHYDRGNSE Status: Resolved (6) Benzodiazepine dependence Code(s): F13.20 - SEDATIVE, HYPNOTIC OR ANXIOLYTIC DEPENDENCE, UNCOMPLICATED Status: Chronic (7) Cannabis abuse Code(s): F12.10 - CANNABIS ABUSE, UNCOMPLICATED Status: Chronic (8) Narcotic dependence Code(s): F11.20 - OPIOID DEPENDENCE, UNCOMPLICATED Status: Chronic - Plan cont current plan of care * medication reviewed as below * symptomatic treatment * see discharge rodrigo. Review of Systems - Review of Systems ENT: negative: Ear Pain, Ear Discharge, Nose Pain, Nose Discharge, Nose Congestion, Mouth Pain, Mouth Swelling, Throat Pain, Throat Swelling, Other Respiratory: negative: Cough, Dry, Shortness of Breath, Hemoptysis, SOB with Excertion, Pleuritic Pain, Sputum, Wheezing Cardiovascular: negative: chest pain, palpitations, orthopnea, paroxysmal nocturnal dyspnea, edema, light headedness, other Gastrointestinal: negative: Nausea, Vomiting, Abdominal Pain, Diarrhea, Constipation, Melena, Hematochezia, Other Genitourinary: negative: Dysuria, Frequency, Incontinence, Hematuria, Retention , Other Musculoskeletal: negative: Neck Pain, Shoulder Pain, Arm Pain, Back Pain, Hand Pain, Leg Pain, Foot Pain, Other - Medications/Allergies Allergies/Adverse Reactions: Allergies Allergy/AdvReac Type Severity Reaction Status Date / Time codeine Allergy Rash Verified 06/06/18 06:36 Medications: Current Medications Acetaminophen (Tylenol) 650 mg PO Q4H PRN PRN Reason: Headache/Fever Alprazolam (Xanax) 0.5 mg PO TID [facility] Last Admin: 06/09/18 08:13 Dose: 0.5 mg Artificial Tears (Liquitears 15ml Bottle) 2 drop EA EYE PRN PRN PRN Reason: Dry Eyes Bisacodyl (Dulcolax) 10 mg PO DAILYPRN PRN PRN Reason: Constipation Last Admin: 06/09/18 06:06 Dose: 10 mg Famotidine (Pepcid) 20 mg PO BID [facility] Last Admin: 06/09/18 08:13 Dose: 20 mg Guaifenesin (Robitussin Sf) 200 mg PO Q4H PRN PRN Reason: Cough Hydralazine HCl (Apresoline) 10 mg SLOW IVP Q4H PRN PRN Reason: SBP > 180 and HR < 70 Ibuprofen (Motrin) 600 mg PO Q6H PRN PRN Reason: Pain Loperamide HCl (Imodium) 2 mg PO PRN PRN PRN Reason: Diarrhea/Loose Stools Loratadine (Claritin) 10 mg PO DAILYPRN PRN PRN Reason: Sinus Symptoms Melatonin (Melatonin) 3 mg PO HS PRN PRN Reason: Insomnia Last Admin: 06/08/18 00:26 Dose: 3 mg Mineral Oil/White Petrolatum (Eucerin Cream) 0 gm TOP BIDPRN PRN PRN Reason: Dry Skin Ondansetron HCl (Zofran Odt) 4 mg PO Q6H PRN PRN Reason: Nausea/Vomiting Stop: 06/11/18 15:00 Ondansetron HCl (Zofran) 4 mg IVP Q6H PRN PRN Reason: Nausea/Vomiting Saccharomyces Boulardii (Florastor) 250 mg PO DAILY [facility] Last Admin: 06/09/18 08:13 Dose: 250 mg Sodium Chloride (Flush - Normal Saline) 10 ml IVF Q12HR [facility] Last Admin: 06/09/18 08:14 Dose: 10 ml Sodium Chloride (Flush - Normal Saline) 10 ml IVF PRN PRN PRN Reason: Saline Flush Sodium Chloride (Fuig Nasal [place] 0.65%) 0 ml EA NARE QIDPRN PRN PRN Reason: Nasal Congestion Throat Lozenges (Cepastat Lozenges) 1 jose cruz PO Q2H PRN PRN Reason: Sore Throat
[2018-06-09 10:58] VITALS: BP 124/84; TEMP 97.8
--- NOTE | 2018-06-09 14:29 | DIS ---
DATE OF ADMISSION: 06/06/2018 DATE OF DISCHARGE: 06/09/2018 PRIMARY CARE PHYSICIAN: Dr. Vallejo. DISCHARGE DISPOSITION: Home. PRIMARY DISCHARGE DIAGNOSES: 1. Bilateral sacroiliitis. 2. Low TSH due to sick euthyroid syndrome. 3. Acute metabolic encephalopathy, resolved. 4. Hypokalemia, corrected. 5. Leukocytosis, resolved. 6. Transaminitis, improved. SECONDARY DISCHARGE DIAGNOSES: Chronic low back pain, narcotic dependence, cannabis abuse, benzodiazepine dependence. PRIMARY PROCEDURE/OPERATION: Lumbar puncture, which was normal. RADIOLOGICAL INVESTIGATION: MRI brain normal. Lumbar spine MRI showed bilateral sacroiliitis and lumbar spondylolysis. SIGNIFICANT LABORATORY DATA: Hemoglobin 11.6. Creatinine 0.66. CRP 1.31. Urinalysis normal. CSF normal. Blood culture, urine culture, and CSF negative. DISCHARGE MEDICATIONS: The patient will continue all her previous medications; 1. Zofran 4 mg q.6 hourly p.r.n. 2. Xanax 0.5 mg t.i.d. 3. [place] 10 one tablet t.i.d. p.r.n. 4. Pepcid 20 mg p.o. b.i.d. 5. Ibuprofen 600 mg q.6 hourly p.r.n. CONTRAINDICATION: None. CODE STATUS: Full code. INPATIENT DEALMAKER: Dr. Bass. ALLERGIES: CODEINE. DISCHARGE PLAN: Post-hospital, the patient will follow up with primary care physician in 1 or 2 weeks. The patient is advised to follow up with Rheumatology as well. HOSPITAL COURSE: A 32-year-old female, who was admitted by Dr. Patti Zabala. Please see his H and P for further details. The patient was having acute encephalopathy and she was having leukocytosis and high-grade fever as she was meeting SIRS criteria and she was empirically treated for broad-spectrum antibiotic as well as antiviral medication. She had sick euthyroid syndrome and her leukocytosis improved with hydration. Her cultures remain negative. We did lumbar puncture and ruled out meningitis. At that point, we discontinued all antibiotic therapy. Her urinalysis was normal. We have completely excluded all infectious possibility on her and we did MRI lumbar spine and we found that the patient has bilateral sacroiliitis and that is why we advised her to follow up with Rheumatology. The patient is seen and examined at bedside today. Please see my progress note from today for further detail. The patient was medically stable by the time of discharge. Job ID: [id number]
[2018-06-10 12:11] LABS: West Nile Virus IgG Ab - CSF Negative (Negative); West Nile Virus IgM Ab - CSF Negative (Negative)
[2018-06-10 17:09] LABS: HSV 2 - DNA Negative (Negative)
== END 2018-06-09 11:40 | disposition home or self-care (01) | DRG 551 ==
LOC: ERS 02:37 → OBSVTOIN 06:24 → 2SW 06:24 → T4-B 09:56
PROVIDERS: ADMIT Internal Medicine; ATTEND Internal Medicine
PROC: 009U3ZX Drainage of Spinal Canal, Percutaneous Approach, Diagnostic (ICD-10-PCS; principal; 2018-06-08)
PROC: B01BYZZ Fluoroscopy of Spinal Cord using Other Contrast (ICD-10-PCS; 2018-06-08)
DX: M46.1 Sacroiliitis, not elsewhere classified (principal); G93.41 Metabolic encephalopathy; F13.20 Sedative, hypnotic or anxiolytic dependence, uncomplicated; G89.4 Chronic pain syndrome; F41.9 Anxiety disorder, unspecified; E87.6 Hypokalemia; E07.81 Sick-euthyroid syndrome; R74.0 Nonspecific elevation of levels of transaminase and lactic acid dehydrogenase [LDH]; F12.10 Cannabis abuse, uncomplicated; D72.829 Elevated white blood cell count, unspecified; Z79.891 Long term (current) use of opiate analgesic; Z79.899 Other long term (current) drug therapy; Z88.5 Allergy status to narcotic agent
CPT/HCPCS: 36415; 62270; 70553; 72158; 80053; 80202; 81003; 82945; 84157; 84439; 85025; 85652; 86140; 86788; 86789; 87070; 87086; 87205; 87252; 87529; 89051; 96365; 96367; J0133; J0696; J3370; J3490; J7050

== ENCOUNTER 2019-04-01 17:44 | Emergency (ER) | payer SELFPAY ==
[2019-04-01 18:56] LABS: #Basophils 0.1 thou/uL (0.0-0.2); #Lymphocytes 3.8 thou/uL (1.20-3.40); #Neutrophils 7.7 thou/uL (1.40-6.50); %Basophils 0.9 % (0.0-1.0); %Eosinophils 0.1 % (0.0-10.0); %Lymphocytes 30.2 % (21.0-51.0); %Monocytes 7.9 % (0.0-10.0); %Neutrophils 60.9 % (42.0-75.0); Hemoglobin 16.7 g/dL (12.0-16.0); Mean Corpuscular HGB CONC 32.9 g/dL (32.0-36.0); Mean Corpuscular Hemoglobin 30.1 pg (27.0-31.0); Mean Corpuscular Volume 91.6 fL (78.0-98.0); Mean Platelet Volume 8.1 fL (7.4-10.4); Platelet Count 304 thou/uL (130-400); RBC Distribution Width 13.1 % (11.5-14.5); Red Blood Cell (RBC) Count 5.54 mill/uL (4.20-5.40); White Blood Cell (WBC) Count 12.7 thou/uL (4.8-10.8)
[2019-04-01 19:11] LABS: Acetaminophen Less than 6.0 mcg/mL (10.0-30.0); Alcohol Less than 10 mg/dL (Less than 10); Salicylate Less than 8.0 mg/dL (15.0-30.0)
[2019-04-01 19:11] LABS: ALT (SGPT) 29 U/L (8-55); AST (SGOT) 34 U/L (5-34); Albumin 4.8 g/dL (3.5-5.0); Alkaline Phosphatase 157 U/L (40-110); Anion Gap 16 mmol/L (10-20); BUN (Urea Nitrogen) 35 mg/dL (7.0-18.7); CK (CPK) 102 U/L (29-168); Calc. Creatinine Clearance 0 mL/min (70-130); Carbon Dioxide 28 mmol/L (22-29); Chloride 98 mmol/L (98-107); Estimated GFR-MDRD 78; Globulin 4.2 g/dL (2.4-3.5); Glucose 110 mg/dL (70-105); Potassium 3.1 mmol/L (3.5-5.1); Sodium 139 mmol/L (136-145)
[2019-04-01] MEDS ORDERED: Ondansetron PF 4 MG/2 ML Vial ONE (20:16)
[2019-04-01] MEDS ORDERED: Lorazepam 2 MG/ML VIAL ONE (20:59)
[2019-04-01] MEDS ORDERED: Haloperidol Lactate 5 MG/ML VIAL ONE (21:37)
--- NOTE | 2019-04-07 15:37 | EKG ---
Test Reason : Blood Pressure : / mmHG Vent. Rate : 084 BPM Atrial Rate : 084 BPM P-R Int : 122 ms QRS Dur : 080 ms QT Int : 358 ms P-R-T Axes : 073 068 064 degrees QTc Int : 423 ms Normal sinus rhythm with sinus arrhythmia Biatrial enlargement Abnormal ECG Confirmed by JEN BEAR, GERALD ([id number]), business editor ALMAZ ENAMORADO ([id number]) on 04/07/2019 3:36:42 PM Referred By: Confirmed By:GERALD LI MD
== END 2019-04-01 23:57 ==
LOC: ERS 17:44
DX: F23 Brief psychotic disorder (principal); F41.9 Anxiety disorder, unspecified; F31.9 Bipolar disorder, unspecified; F17.210 Nicotine dependence, cigarettes, uncomplicated; Z87.442 Personal history of urinary calculi; Z71.6 Tobacco abuse counseling; Z79.899 Other long term (current) drug therapy
CPT/HCPCS: 36415; 80053; 80307; 82550; 84443; 85025; 93005; 94760; 96361; 96374; 96375; 99406; J1630; J2060; J2405

== ENCOUNTER 2019-04-28 20:58 | Emergency (ER) | payer SELFPAY ==
[2019-04-28 22:08] LABS: #Basophils 0.1 thou/uL (0.0-0.2); #Eosinphils 0.4 thou/uL (0.0-0.7); #Lymphocytes 3.8 thou/uL (1.20-3.40); #Monocytes 0.7 thou/uL (0.11-0.59); #Neutrophils 4.4 thou/uL (1.40-6.50); %Basophils 0.9 % (0.0-1.0); %Eosinophils 4.6 % (0.0-10.0); %Lymphocytes 40.4 % (21.0-51.0); %Neutrophils 47.1 % (42.0-75.0); Hemoglobin 11.2 g/dL (12.0-16.0); Mean Corpuscular Hemoglobin 29.9 pg (27.0-31.0); Mean Corpuscular Volume 90.5 fL (78.0-98.0); Platelet Count 328 thou/uL (130-400); RBC Distribution Width 14.1 % (11.5-14.5); Red Blood Cell (RBC) Count 3.75 mill/uL (4.20-5.40); White Blood Cell (WBC) Count 9.4 thou/uL (4.8-10.8)
[2019-04-28 22:13] LABS: Bilirubin Negative (Negative); Blood, Urine Negative (Negative); Clarity Clear (Clear); Glucose, Urine (Dipstick) Normal (Negative); Leukocyte Negative Leu/uL (Negative); Nitrite Negative (Negative); Protein, Urine (Dipstick) Negative (Neg-Trace); Urobilinogen Normal mg/dL (Less than 2)
[2019-04-28 22:24] LABS: Medtox Reader # READER 1; Opiate Screen Detected (NotDetected); THC/Cannabinoid Screen Detected (NotDetected)
[2019-04-28 22:25] LABS: Amphetamine Not Detected (NotDetected); Barbiturates Screen Not Detected (NotDetected); Benzodiazepine Screen Detected (NotDetected); Cocaine Metabolite Screen Not Detected (NotDetected); Medtox Control Line Valid? VALID (VALID); Methadone Not Detected (NotDetected); Methamphetamine Not Detected (NotDetected); Oxycodone Screen Not Detected (NotDetected); Phencyclidine (PCP) Not Detected (NotDetected); Tricyclic Screen Not Detected (NotDetected)
[2019-04-28 22:32] LABS: ALT (SGPT) 1046 U/L (8-55); AST (SGOT) 123 U/L (5-34); Albumin 2.8 g/dL (3.5-5.0); Alkaline Phosphatase 295 U/L (40-110); Anion Gap 11 mmol/L (10-20); BUN (Urea Nitrogen) 7 mg/dL (7.0-18.7); Bilirubin, Total 0.7 mg/dL (0.2-1.2); Calc. Creatinine Clearance 0 mL/min (70-130); Calcium 8.2 mg/dL (7.8-10.44); Carbon Dioxide 27 mmol/L (22-29); Chloride 107 mmol/L (98-107); Estimated GFR-MDRD Greater than 90; Globulin 3.4 g/dL (2.4-3.5); Glucose 141 mg/dL (70-105); Protein, Total 6.2 g/dL (6.0-8.3); Sodium 142 mmol/L (136-145)
[2019-04-28 22:33] LABS: Acetaminophen Less than 6.0 mcg/mL (10.0-30.0); Alcohol Less than 10 mg/dL (Less than 10); CK (CPK) 28 U/L (29-168); Salicylate Less than 8.0 mg/dL (15.0-30.0)
[2019-04-29] MEDS ORDERED: Acetaminophen 325 MG TAB ONE (02:49)
[2019-04-29] MEDS ORDERED: Mirtazapine 15 MG TAB PO SCH (03:00)
[2019-04-29] MEDS ORDERED: OLANZapine 5 MG TAB PO SCH (03:00)
[2019-04-29] MEDS ORDERED: OLANZapine 5 MG TAB ONE (03:53)
[2019-04-29] MEDS ORDERED: hydrOXYzine 25 MG TAB ONE (07:58)
[2019-04-29] MEDS ORDERED: hydrOXYzine Pamoate 25 mg Capsule ONE (14:16)
== END 2019-04-29 16:32 | disposition home or self-care (01) ==
LOC: ERS 20:58
DX: F23 Brief psychotic disorder (principal); F30.2 Manic episode, severe with psychotic symptoms; F41.9 Anxiety disorder, unspecified; F17.210 Nicotine dependence, cigarettes, uncomplicated; Z79.899 Other long term (current) drug therapy
CPT/HCPCS: 36415; 80053; 80306; 80307; 81003; 82550; 84443; 85025; 99285; Q0177